=== PATIENT | female | born 1975 | race African-American/Black ===

== ENCOUNTER 2024-03-13 09:06 | Outpatient (CLI) | payer OTHER ==
[~2024-03-13 09:06] MED LIST: ATENOLOL50 MG PO; CATAPRES 0.2MG TAB PO; CATAPRES0.2 MG; GLUCOPHAGE XR500 MG; HumaLOG 100 UNIT/1 ML (3ML) SUBCUTANEO; LAMISIL250 MG PO; Lantus 1000 U/10 ML SUBCUTANEO; Synthroid PO; TOPROL XL50 MG
== END 2024-03-13 09:08 | disposition home or self-care (01) ==
LOC: SONOGRAMA 09:06
PROVIDERS: ATTEND Pathology Anatomic Pathology
DX: N63.20 Unspecified lump in the left breast, unspecified quadrant (principal)